=== PATIENT | female | born 1985 | race Caucasian/White ===

== ENCOUNTER 2017-02-12 09:59 | Emergency (ER) | payer MEDICAID | END 2017-02-12 11:12 | disposition home or self-care (01) | LOC: D.ER 09:59 | DX: S86.812A Strain of other muscle(s) and tendon(s) at lower leg level, left leg, initial encounter (principal); X58.XXXA Exposure to other specified factors, initial encounter; Y93.89 Activity, other specified; Y92.89 Other specified places as the place of occurrence of the external cause; F17.200 Nicotine dependence, unspecified, uncomplicated; M79.7 Fibromyalgia ==

== ENCOUNTER 2017-07-28 13:49 | Emergency (ER) | payer SELFPAY ==
[2017-07-28 15:39] LABS: APPEARANCE CLEAR (CLEAR); COLOR YELLOW (YELLOW); LEUKOCYTE ESTERASE NEGATIVE (NEGATIVE); SPECIFIC GRAVITY 1.015 (1.005-1.020)
[2017-07-28 15:40] LABS: BILIRUBIN NEGATIVE (NEGATIVE); GLUCOSE NEGATIVE (NEGATIVE); KETONE NEGATIVE (NEGATIVE); NITRITE NEGATIVE (NEGATIVE); PROTEIN NEGATIVE (NEGATIVE); UROBILINOGEN NORMAL (NORMAL)
[2017-07-28 15:41] LABS: BACTERIA MANY /hpf (NONE SEEN); MUCUS <1+ /lpf (NONE SEEN); WHITE CELLS - URINE 0-5 /hpf (0-5)
[2017-07-28 15:50] LABS: BASOPHILS 0.2 % (0-2); EOSINOPHILS 1.5 % (0-7); HEMATOCRIT 37.5 % (36.0-48.0); HEMOGLOBIN 12.8 g/dL (12-16); IMMATURE GRANULOCYTES 0.2 % (0-5); LYMPHOCYTES 38.6 % (15-50); MCH 33.2 pg (26.0-34.0); MCHC 34.1 g/dL (31.0-37.0); MCV 97.4 fL (80.0-100.0); MEAN PLATELET VOLUME 10.2 fL (7.4-10.4); NEUTROPHILS 52.5 % (40-80); PLATELET COUNT 151 10x3/uL (130-400); RBC 3.85 10x6/uL (4.00-5.40); RDW 12.4 % (11.5-14.5)
[2017-07-28 16:09] LABS: ALBUMIN 3.3 g/dL (3.4-5.0); ALKALINE PHOSPHATASE 49 U/L (46-116); ALT (SGPT) 19 U/L (10-68); AMYLASE - SERUM 63 U/L (25-115); BILIRUBIN - TOTAL 0.16 mg/dL (0.2-1.3); CALC OSMOLALITY 283 mosm/kg (275-300); CALCIUM 8.2 mg/dL (8.5-10.1); CARBON DIOXIDE 28.8 mmol/L (21.0-32.0); CHLORIDE - SERUM 109 mmol/L (98-107); CREATININE - SERUM 0.8 mg/dL (0.6-1.3); GLUCOSE 89 mg/dL (74-106); LIPASE 132 U/L (73-393); POTASSIUM - SERUM 4.2 mmol/L (3.5-5.1); SODIUM 143 mmol/L (136-145); UREA NITROGEN 12 mg/dL (7-18); eGFR NON AFRICAN AMERICAN 88 mL/min (90-120)
[2017-07-28 16:44] LABS: PROTEIN - SERUM 6.4 g/dL (6.4-8.2)
== END 2017-07-28 17:44 | disposition home or self-care (01) ==
LOC: D.ER 13:49
PROVIDERS: Emergency Medicine; Nurse Practitioner Acute Care
DX: N76.0 Acute vaginitis (principal); B96.89 Other specified bacterial agents as the cause of diseases classified elsewhere; F17.200 Nicotine dependence, unspecified, uncomplicated

== ENCOUNTER 2018-08-18 14:27 | Emergency (ER) | payer SELFPAY ==
[~2018-08-18] VITALS: Ht 175.3 cm; Wt 65.9 kg
[2018-08-18 14:45] VITALS: Ht 175.3 cm; Wt 65.9 kg
[2018-08-18] MEDS ORDERED: ULTRAM50 MG PO (14:47)
[2018-08-18] MEDS ORDERED: ZANAFLEX4 MG PO (14:48)
[2018-08-18] MEDS ORDERED: PHENERGAN DM SYR5 ML PO (17:19)
[2018-08-18] MEDS ORDERED: VIBRAMYCIN 100100 MG PO (17:19)
[2018-08-18 18:24] VITALS: BP 123/85
== END 2018-08-18 18:24 | disposition home or self-care (01) ==
LOC: D.ER 14:27
DX: G43.909 Migraine, unspecified, not intractable, without status migrainosus (principal); J06.9 Acute upper respiratory infection, unspecified; R11.2 Nausea with vomiting, unspecified; F17.200 Nicotine dependence, unspecified, uncomplicated

== ENCOUNTER 2019-06-20 00:16 | Emergency (ER) | payer BC ==
[~2019-06-20] VITALS: Ht 175.3 cm; Wt 65.9 kg
[~2019-06-20 00:16] MED LIST: PHENERGAN DM SYR5 ML PO; ULTRAM50 MG PO; VIBRAMYCIN 100100 MG PO; ZANAFLEX4 MG PO
[2019-06-20 00:19] VITALS: Ht 175.3 cm; Wt 65.9 kg
[2019-06-20] MEDS ORDERED: HYDROCODONE-A1 UDTA2 PO (01:48)
[2019-06-20 02:04] VITALS: BP 132/89
== END 2019-06-20 02:04 | disposition home or self-care (01) ==
LOC: D.ER 00:16
DX: T16.2XXA Foreign body in left ear, initial encounter (principal); X58.XXXA Exposure to other specified factors, initial encounter; Y93.89 Activity, other specified; Y92.89 Other specified places as the place of occurrence of the external cause

== ENCOUNTER 2019-07-03 18:23 | Emergency (ER) | payer BC ==
[~2019-07-03] VITALS: Ht 175.3 cm; Wt 65.9 kg
[~2019-07-03 18:23] MED LIST changes: +HYDROCODONE-A1 UDTA2 PO
[2019-07-03 18:28] VITALS: Ht 175.3 cm; Wt 65.9 kg
[2019-07-03 19:22] LABS: BASOPHILS 0.2 % (0-2); EOSINOPHILS 1.3 % (0-7); HEMATOCRIT 41.7 % (36.0-48.0); HEMOGLOBIN 14.8 g/dL (12-16); IMMATURE GRANULOCYTES 0.1 % (0-5); LYMPHOCYTES 31.7 % (15-50); MCH 33.1 pg (26.0-34.0); MCHC 35.5 g/dL (31.0-37.0); MCV 93.3 fL (80.0-100.0); MEAN PLATELET VOLUME 9.6 fL (7.4-10.4); MONOCYTES 7.8 % (2-11); NEUTROPHILS 58.9 % (40-80); RBC 4.47 10x6/uL (4.00-5.40); RDW 12.2 % (11.5-14.5); WBC 8.6 10x3/uL (4.8-10.8)
[2019-07-03 19:23] LABS: PLATELET COUNT 235 10x3/uL (130-400)
[2019-07-03 19:31] LABS: APTT 26.2 SECONDS (22.8-39.4); INR 1.04 (0.85-1.17); PROTIME 13.1 SECONDS (11.6-15.0)
[2019-07-03 19:44] LABS: ALBUMIN 4.3 g/dL (3.4-5.0); ALKALINE PHOSPHATASE 52 U/L (46-116); ALT (SGPT) 19 U/L (10-68); CALC OSMOLALITY 284 mosm/kg (275-300); CALCIUM 9.4 mg/dL (8.5-10.1); CARBON DIOXIDE 23.6 mmol/L (21.0-32.0); CHLORIDE - SERUM 108 mmol/L (98-107); CREATININE - SERUM 0.9 mg/dL (0.6-1.3); GLUCOSE 93 mg/dL (74-106); POTASSIUM - SERUM 3.9 mmol/L (3.5-5.1); PROTEIN - SERUM 7.9 g/dL (6.4-8.2); SODIUM 143 mmol/L (136-145); UREA NITROGEN 13 mg/dL (7-18); eGFR NON AFRICAN AMERICAN 76 mL/min (90-120)
[2019-07-03 19:55] LABS: CKMB 0.3 U/L (0.0-3.6); CREATINE KINASE 52 UL (21-215)
[2019-07-03 19:58] LABS: TROPONIN-I < 0.017 ng/mL (0.000-0.060)
[2019-07-03] MEDS ORDERED: VISTARIL25 MG PO (21:52)
[2019-07-03 22:09] VITALS: BP 126/90
== END 2019-07-03 22:09 | disposition home or self-care (01) ==
LOC: D.ER 18:23
PROVIDERS: Family Medicine
DX: F41.9 Anxiety disorder, unspecified (principal)

== ENCOUNTER 2020-03-07 19:56 | Emergency (ER) | payer OTHER ==
[~2020-03-07] VITALS: Ht 175.3 cm; Wt 65.9 kg
[~2020-03-07 19:56] MED LIST changes: +VISTARIL25 MG PO
[2020-03-07 20:10] VITALS: Ht 175.3 cm; Wt 65.9 kg
[2020-03-07 20:42] LABS: BASOPHILS 0.3 % (0-2); EOSINOPHILS 1.4 % (0-7); HEMATOCRIT 45.2 % (36.0-48.0); HEMOGLOBIN 14.9 g/dL (12-16); IMMATURE GRANULOCYTES 0.1 % (0-5); LYMPHOCYTES 38.8 % (15-50); MCH 32.7 pg (26.0-34.0); MCV 99.3 fL (80.0-100.0); MEAN PLATELET VOLUME 9.7 fL (7.4-10.4); MONOCYTES 5.6 % (2-11); NEUTROPHILS 53.8 % (40-80); PLATELET COUNT 228 10x3/uL (130-400); RBC 4.55 10x6/uL (4.00-5.40); RDW 12.4 % (11.5-14.5); WBC 7.3 10x3/uL (4.8-10.8)
[2020-03-07 20:58] LABS: BILIRUBIN NEGATIVE (NEGATIVE); GLUCOSE NEGATIVE (NEGATIVE); KETONE NEGATIVE (NEGATIVE); NITRITE NEGATIVE (NEGATIVE); SPECIFIC GRAVITY 1.015 (1.005-1.020); UROBILINOGEN NORMAL (NORMAL)
[2020-03-07 21:06] LABS: CALC OSMOLALITY 278 mosm/kg (275-300); CARBON DIOXIDE 28.4 mmol/L (21.0-32.0); CHLORIDE - SERUM 103 mmol/L (98-107); CREATININE - SERUM 0.9 mg/dL (0.6-1.3); GLUCOSE 107 mg/dL (74-106); POTASSIUM - SERUM 4.2 mmol/L (3.5-5.1); SODIUM 140 mmol/L (136-145); UREA NITROGEN 12 mg/dL (7-18); eGFR NON AFRICAN AMERICAN 75 mL/min (90-120)
[2020-03-07 21:12] LABS: ALBUMIN 4.6 g/dL (3.4-5.0); ALKALINE PHOSPHATASE 47 U/L (30-120); ALT (SGPT) 21 U/L (10-68); BILIRUBIN - TOTAL 0.39 mg/dL (0.2-1.3); PROTEIN - SERUM 8.3 g/dL (6.4-8.2)
[2020-03-08] MEDS ORDERED: OMNICEF300 MG PO (01:57)
[2020-03-08] MEDS ORDERED: TYLENOL W/CODEI1 TAB PO (01:57)
[2020-03-08 02:08] VITALS: BP 113/75
== END 2020-03-08 02:10 | disposition home or self-care (01) ==
LOC: D.ER 19:56
PROVIDERS: Family Medicine
DX: R10.32 Left lower quadrant pain (principal); R30.0 Dysuria

== ENCOUNTER 2021-01-03 13:13 | Emergency (ER) | payer OTHER ==
[~2021-01-03] VITALS: Ht 175.3 cm; Wt 59.1 kg
[~2021-01-03 13:13] MED LIST changes: +OMNICEF300 MG PO; +TYLENOL W/CODEI1 TAB PO
[2021-01-03 13:24] VITALS: Ht 175.3 cm; Wt 59.1 kg
[2021-01-03 13:50] LABS: HEMATOCRIT 44.9 % (36.0-48.0); HEMOGLOBIN 15.3 g/dL (12-16); LYMPHOCYTES 9.8 % (15-50); MCH 32.4 pg (26.0-34.0); MCHC 34.1 g/dL (31.0-37.0); MCV 95.1 fL (80.0-100.0); MEAN PLATELET VOLUME 10.2 fL (7.4-10.4); PLATELET COUNT 195 10x3/uL (130-400); RBC 4.72 10x6/uL (4.00-5.40); RDW 12.1 % (11.5-14.5); WBC 9.8 10x3/uL (4.8-10.8)
[2021-01-03 14:07] LABS: CALC OSMOLALITY 278 mosm/kg (275-300); CALCIUM 9.6 mg/dL (8.5-10.1); CHLORIDE - SERUM 103 mmol/L (98-107); CREATININE - SERUM 0.9 mg/dL (0.6-1.3); GLUCOSE 125 mg/dL (74-106); POTASSIUM - SERUM 3.7 mmol/L (3.5-5.1); SODIUM 139 mmol/L (136-145); UREA NITROGEN 12 mg/dL (7-18); eGFR NON AFRICAN AMERICAN 75 mL/min (90-120)
[2021-01-03 14:16] LABS: ALBUMIN 4.4 g/dL (3.4-5.0); ALKALINE PHOSPHATASE 51 U/L (30-120); ALT (SGPT) 23 U/L (10-68); AMYLASE - SERUM 35 U/L (25-115); LIPASE 58 U/L (73-393); PROTEIN - SERUM 7.8 g/dL (6.4-8.2)
[2021-01-03 14:22] LABS: TROPONIN-I < 0.017 ng/mL (0.000-0.060)
[2021-01-03 14:23] LABS: BILIRUBIN NEGATIVE (NEGATIVE); KETONE LARGE mg/dL (NEGATIVE); NITRITE NEGATIVE (NEGATIVE); UROBILINOGEN NORMAL mg/dL (< 2)
[2021-01-03 14:24] LABS: BACTERIA MODERATE HPF (NONE SEEN); SQUAMOUS EPITHELIAL 0-5 HPF (0-4); WHITE CELLS - URINE RARE HPF (0-4)
[2021-01-03 14:50] LABS: INFLUENZA TYPE A NEGATIVE (NEGATIVE); INFLUENZA TYPE B NEGATIVE (NEGATIVE); SARS-CoV-2 ANTIGEN NEGATIVE- SARS-COV-2 (NEGATIVE)
[2021-01-03 16:10] VITALS: BP 127/85
[2021-01-03] MEDS ORDERED: PHENERGAN25 M1 PO (18:30)
[2021-01-04] MEDS ORDERED: TORADOL10 MG PO (15:15)
[2021-01-04] MEDS ORDERED: ZOFRAN ODT4 MG/UDTAB PO (15:15)
[2021-01-04] MEDS ORDERED: BACTRIM 400-801 TAB PO (15:20)
== END 2021-01-03 19:43 | disposition home or self-care (01) ==
LOC: D.ER 13:13
PROVIDERS: Emergency Medicine
DX: R11.2 Nausea with vomiting, unspecified (principal); N20.0 Calculus of kidney; R10.9 Unspecified abdominal pain

== ENCOUNTER 2021-01-04 10:58 | Emergency (ER) | payer OTHER ==
[~2021-01-04] VITALS: Ht 175.3 cm; Wt 61.4 kg
[~2021-01-04 10:58] MED LIST changes: +PHENERGAN25 M1 PO
[2021-01-04 11:16] VITALS: Ht 175.3 cm; Wt 61.4 kg
[2021-01-04 11:48] LABS: BASOPHILS 0.2 % (0-2); EOSINOPHILS 0 % (0-7); HEMATOCRIT 42.7 % (36.0-48.0); HEMOGLOBIN 14.9 g/dL (12-16); IMMATURE GRANULOCYTES 0.3 % (0-5); LYMPHOCYTES 11.3 % (15-50); MCHC 34.9 g/dL (31.0-37.0); MCV 94.7 fL (80.0-100.0); MEAN PLATELET VOLUME 10.4 fL (7.4-10.4); MONOCYTES 9.4 % (2-11); NEUTROPHIL ABS# 10.48 10x3/uL (1.56-6.13); NEUTROPHILS 78.8 % (40-80); PLATELET COUNT 200 10x3/uL (130-400); RBC 4.51 10x6/uL (4.00-5.40); RDW 12.6 % (11.5-14.5); WBC 13.3 10x3/uL (4.8-10.8)
[2021-01-04 11:56] LABS: ANION GAP 19.4 mmol/L (8-16); CALCIUM 8.9 mg/dL (8.5-10.1); CARBON DIOXIDE 21.2 mmol/L (21.0-32.0); POTASSIUM - SERUM 3.6 mmol/L (3.5-5.1)
[2021-01-04 12:02] LABS: ALBUMIN 4.2 g/dL (3.4-5.0); BILIRUBIN - TOTAL 0.58 mg/dL (0.2-1.3); PROTEIN - SERUM 7.5 g/dL (6.4-8.2)
[2021-01-04] MEDS ORDERED: ZOFRAN ODT4 MG/UDTAB PO (15:15)
[2021-01-04] MEDS ORDERED: TORADOL10 MG PO (15:15)
[2021-01-04] MEDS ORDERED: BACTRIM 400-801 TAB PO (15:20)
[2021-01-04 15:30] VITALS: BP 128/78
[2021-01-04 15:33] LABS: BILIRUBIN NEGATIVE (NEGATIVE); KETONE LARGE mg/dL (NEGATIVE); NITRITE NEGATIVE (NEGATIVE); UROBILINOGEN NORMAL mg/dL (< 2)
== END 2021-01-04 16:14 | disposition home or self-care (01) ==
LOC: D.ER 10:58
PROVIDERS: Family Medicine
DX: R11.2 Nausea with vomiting, unspecified (principal); R10.9 Unspecified abdominal pain

== ENCOUNTER 2021-04-09 08:14 | Emergency (ER) | payer SELFPAY ==
[~2021-04-09] VITALS: Ht 175.3 cm; Wt 63.6 kg
[~2021-04-09 08:14] MED LIST changes: +BACTRIM 400-801 TAB PO; +TORADOL10 MG PO; +ZOFRAN ODT4 MG/UDTAB PO
[2021-04-09 08:18] VITALS: Ht 175.3 cm; Wt 63.6 kg
[2021-04-09 08:58] LABS: BASOPHILS 0.4 % (0-2); EOSINOPHILS 1.4 % (0-7); HEMATOCRIT 41.7 % (36.0-48.0); HEMOGLOBIN 14.3 g/dL (12-16); LYMPHOCYTES 23.6 % (15-50); MCH 32.5 pg (26.0-34.0); MCHC 34.2 g/dL (31.0-37.0); MEAN PLATELET VOLUME 8.3 fL (7.4-10.4); MONOCYTES 7.7 % (2-11); NEUTROPHILS 66.9 % (40-80); PLATELET COUNT 182 10x3/uL (130-400); RBC 4.39 10x6/uL (4.00-5.40); RDW 12.8 % (11.5-14.5); WBC 6.9 10x3/uL (4.8-10.8)
[2021-04-09 09:12] LABS: CALC OSMOLALITY 286 mosm/kg (275-300); CALCIUM 8.2 mg/dL (8.5-10.1); CARBON DIOXIDE 26.2 mmol/L (21.0-32.0); CHLORIDE - SERUM 111 mmol/L (98-107); CREATININE - SERUM 0.8 mg/dL (0.6-1.3); GLUCOSE 103 mg/dL (74-106); POTASSIUM - SERUM 4.1 mmol/L (3.5-5.1); SODIUM 143 mmol/L (136-145); UREA NITROGEN 17 mg/dL (7-18); eGFR NON AFRICAN AMERICAN 86 mL/min (90-120)
[2021-04-09 09:14] LABS: ALBUMIN 3.6 g/dL (3.4-5.0); ALKALINE PHOSPHATASE 42 U/L (30-120); ALT (SGPT) 19 U/L (10-68); BILIRUBIN - TOTAL 0.26 mg/dL (0.2-1.3); PROTEIN - SERUM 6.7 g/dL (6.4-8.2)
[2021-04-09 10:05] LABS: BILIRUBIN NEGATIVE (NEGATIVE); KETONE NEGATIVE (NEGATIVE); NITRITE NEGATIVE (NEGATIVE); UROBILINOGEN NORMAL mg/dL (< 2)
[2021-04-09 10:06] LABS: HCG URINE NEGATIVE (NEGATIVE)
[2021-04-09] MEDS ORDERED: CEPHALEXIN500 M1 PO (10:32)
[2021-04-09 10:39] VITALS: BP 119/80
== END 2021-04-09 10:52 | disposition home or self-care (01) ==
LOC: D.ER 08:14
PROVIDERS: Student in an Organized Health Care Education/Training Program
DX: R10.32 Left lower quadrant pain (principal); M79.7 Fibromyalgia